=== PATIENT | female | born 1990 | race Caucasian/White ===

== ENCOUNTER 2018-06-15 12:40 | Outpatient (REF) | payer OTHER, SELFPAY | END 2018-06-15 13:00 | LOC: NCHCN 12:40 | PROVIDERS: PCP Internal Medicine; Visit Provider Nurse Practitioner Family | DX: R30.0 Dysuria (principal) | CPT/HCPCS: 87086 ==

== ENCOUNTER 2018-07-10 11:08 | Outpatient (REF) | payer OTHER, SELFPAY ==
[2018-07-10 14:31] LABS: Bilirubin Negative (Negative); Blood Small (Negative); Clarity Clear; Glucose Negative (Negative); Ketones Negative (Negative); Leukocyte Esterase Negative (Negative); Nitrite Negative (Negative); Urobilinogen 0.2 EU/dL (Up TO 0.2)
[2018-07-10 14:53] LABS: Bacteria Many HPF (Negative); Epithelial Cells Many HPF (Negative)
[2018-07-10 14:58] LABS: C & S Indicated? No/Sq. Contamination
== END 2018-07-10 11:28 ==
LOC: NCHCN 11:08
PROVIDERS: PCP Internal Medicine; Visit Provider Nurse Practitioner Family
DX: R30.0 Dysuria (principal)
CPT/HCPCS: 81003; 81015

== ENCOUNTER 2018-08-17 14:35 | Outpatient (REF) | payer OTHER, SELFPAY ==
[2018-08-17 15:24] LABS: C & S Indicated? C&S Done As Ordered
[2018-08-17 15:30] LABS: Bacteria Many HPF (Negative); Epithelial Cells Many HPF (Negative); WBC >50 HPF (0-5)
== END 2018-08-17 14:55 ==
LOC: LBN 14:35
PROVIDERS: PCP Internal Medicine; Visit Provider Nurse Practitioner Gerontology
DX: R30.0 Dysuria (principal)
CPT/HCPCS: 87077; 81015; 87086; 87186

== ENCOUNTER 2018-09-16 14:21 | Outpatient (REF) | payer OTHER, SELFPAY | END 2018-09-16 14:41 | LOC: LBN 14:21 | PROVIDERS: PCP Internal Medicine; Visit Provider Nurse Practitioner Gerontology | DX: N39.0 Urinary tract infection, site not specified (principal) | CPT/HCPCS: 87077; 87086; 87186 ==

== ENCOUNTER 2019-03-12 16:25 | Outpatient (CLI) | payer OTHER, SELFPAY ==
[2019-03-12 16:56] LABS: Abs Immature Grans 0.02 k/cumm (0.0-0.09); Absolute Basophil Count 0.09 k/cumm (0.0-0.2); Absolute Eosinophil Count 0.15 k/cumm (0.0-0.7); Absolute Lymphocyte Count 2.75 k/cumm (1.2-3.4); Absolute Monocyte Count 0.69 k/cumm (0.11-0.7); Absolute Neutrophil Count 6.49 k/cumm (1.2-6.7); Basophils % 0.9; Eosinophils % 1.5; HCT 39.2 % (36.0-46.0); HGB 12.9 g/dL (12.0-15.5); Immature Grans % 0.2; Mean Corp. HGB Concentration 32.9 g/dL (32.0-36.0); Mean Corpuscular Hemoglobin 31.1 pg (27.0-33.0); Mean Corpuscular Volume 94.5 fL (80-95); Mean Platelet Volume 10.4 fL (8.0-11.0); Monocytes % 6.8; Neutrophils % 63.6; Platelet Count 339 x1000/uL (130-400); RBC 4.15 m/cumm (4.00-5.20); RBC Distribution Width 11.9 % (11.7-14.6); White Blood Cell Count 10.19 k/cumm (4.4-10.8)
[2019-03-12 17:39] LABS: ALT 52 U/L (14-59); AST 99 U/L (15-37); Albumin 4.2 g/dL (3.4-5.0); Alkaline Phosphatase 64 U/L (46-116); Anion Gap 9.3 mmol/L (3-11); BUN 20 mg/dL (7-18); Bilirubin, Total 0.2 mg/dL (0.2-1.0); C-Reactive Protein 0.07 mg/dL (0.0-0.3); CO2 26.7 mmol/L (21.0-32.0); CREATININE 0.75 mg/dL (0.55-1.02); Calcium 8.8 mg/dL (8.5-10.1); Chloride 105 mmol/L (98-107); Glucose 92 mg/dL (74-106); Potassium 4.3 mmol/L (3.5-5.1); Sodium 141 mmol/L (136-145); Total Protein 7.2 g/dL (6.4-8.2)
[2019-03-12 18:33] LABS: ESR 8 mm/hr (0-20)
== END 2019-03-12 16:45 ==
PROVIDERS: PCP Internal Medicine; Visit Provider Nurse Practitioner Family
DX: K50.90 Crohn's disease, unspecified, without complications (principal)
CPT/HCPCS: 36415; 80053; 85652; 85025; 86140

== ENCOUNTER 2019-03-23 12:50 | Outpatient (REF) | payer OTHER, SELFPAY ==
[2019-03-23 21:21] LABS: Abs Immature Grans 0.01 k/cumm (0.0-0.09); Absolute Basophil Count 0.05 k/cumm (0.0-0.2); Absolute Eosinophil Count 0.07 k/cumm (0.0-0.7); Absolute Lymphocyte Count 1.48 k/cumm (1.2-3.4); Absolute Monocyte Count 0.44 k/cumm (0.11-0.7); Absolute Neutrophil Count 4.51 k/cumm (1.2-6.7); Basophils % 0.8; Eosinophils % 1.1; HGB 13.4 g/dL (12.0-15.5); Immature Grans % 0.2; Lymphocytes % 22.6; Mean Corp. HGB Concentration 32.7 g/dL (32.0-36.0); Mean Corpuscular Hemoglobin 31.2 pg (27.0-33.0); Mean Corpuscular Volume 95.3 fL (80-95); Mean Platelet Volume 11.2 fL (8.0-11.0); Monocytes % 6.7; Neutrophils % 68.6; Platelet Count 331 x1000/uL (130-400); RBC Distribution Width 11.9 % (11.7-14.6); White Blood Cell Count 6.56 k/cumm (4.4-10.8)
[2019-03-23 21:31] LABS: Iron 187 ug/dL (50-170); Total Iron Binding Capacity 296 ug/dL (250-450); Transferrin Sat 63 % (15-50)
== END 2019-03-23 13:10 ==
LOC: NCHCN 12:50
PROVIDERS: PCP Internal Medicine; Visit Provider Nurse Practitioner Family
DX: K62.5 Hemorrhage of anus and rectum (principal); K51.90 Ulcerative colitis, unspecified, without complications; R10.32 Left lower quadrant pain
CPT/HCPCS: 83540; 83550; 85025

== ENCOUNTER 2019-04-02 00:20 | Outpatient (CLI) | payer OTHER, SELFPAY ==
[2019-04-02 13:28] LABS: Iron 169 ug/dL (50-170); Total Iron Binding Capacity 270 ug/dL (250-450); Transferrin Sat 63 % (15-50)
== END 2019-04-02 00:40 ==
LOC: NCHCO 00:20 → LBO 11:57
PROVIDERS: PCP Internal Medicine; Visit Provider Internal Medicine
DX: R79.0 Abnormal level of blood mineral (principal)
CPT/HCPCS: 36415; 83540; 83550

== ENCOUNTER 2020-04-25 17:45 | Outpatient (REF) | payer OTHER, SELFPAY ==
--- NOTE | 2020-04-25 16:00 | PAPFT_PTH ---
PATIENT: Vinicio Poon LOC: [facility] U#:[id number] AGE/SX: 30/F ROOM: RE04/25/[address]: Divya Navarro : 1990 BED: DIS: 04/25/2020 SPEC #: [id number] RECD: 04/26/20 13:00 STATUS: JAS REFallon #: [id number] MIKE: 04/25/20 16:[address]: Divya Navarro DEPT: [facility] Cytology RECD BY: Yuki Buenrostro ENTERED: 04/26/20 13:01 SP TYPE: PAPFT OTHR DR: Elian Narvaez Tissues: 1 - CX/ENDOCX FOR PAP SMEARS Procedures: PAP THIN PREP/[facility] Screening HPV DNA PROBE Comments: [id number] (CHLAMYDIA/GC)
[2020-04-25 21:55] LABS: CREATININE 0.74 mg/dL (0.55-1.02)
[2020-04-27 05:00] LABS: Vitamin D 25 Total 35.2 ng/ml (30-100)
[2020-04-27 10:15] LABS: Hepatitis C Ab w Rflx HCV PCR Negative (Negative)
[2020-04-27 10:19] LABS: Syphilis Serology (RPR) Negative (Negative)
[2020-04-27 10:31] LABS: HIV-1/2 Ag & Ab Screen Negative (Negative)
[2020-04-28 07:12] LABS: Chlamydia Result Negative (Negative); GC Result Negative (Negative)
== END 2020-04-25 18:05 ==
LOC: NCHCN 17:45
PROVIDERS: PCP Internal Medicine; Visit Provider Nurse Practitioner Family
DX: Z00.00 Encounter for general adult medical examination without abnormal findings (principal); E55.9 Vitamin D deficiency, unspecified; J34.89 Other specified disorders of nose and nasal sinuses; G47.00 Insomnia, unspecified; K51.90 Ulcerative colitis, unspecified, without complications; H90.5 Unspecified sensorineural hearing loss; Z11.59 Encounter for screening for other viral diseases; Z11.3 Encounter for screening for infections with a predominantly sexual mode of transmission; Z11.4 Encounter for screening for human immunodeficiency virus [HIV]; Z12.4 Encounter for screening for malignant neoplasm of cervix; Z11.51 Encounter for screening for human papillomavirus (HPV); R87.610 Atypical squamous cells of undetermined significance on cytologic smear of cervix (ASC-US); R87.810 Cervical high risk human papillomavirus (HPV) DNA test positive; Z01.419 Encounter for gynecological examination (general) (routine) without abnormal findings
CPT/HCPCS: 82306; 86803; 87389; 87491; 87591; 88142; 82565; 86592; 87624

== ENCOUNTER 2021-05-28 13:31 | Outpatient (REF) | payer OTHER, SELFPAY ==
--- NOTE | 2021-05-28 11:50 | PAPFT_PTH ---
PATIENT: Vinicio Poon [facility] U#:[id number] AGE/SX: 31/F ROOM: RE05/28/[address]: Divya Navarro : 1990 BED: DIS: 05/28/2021 SPEC #: [id number] RECD: 05/28/21 18:00 STATUS: JAS REFallon #: [id number] MIKE: 05/28/21 11:[address]: Divya Navarro DEPT: [facility] Cytology RECD BY: Yuki Buenrostro ENTERED: 05/28/21 18:00 SP TYPE: PAPFT OTHR DR: Elian Narvaez Tissues: 1 - CX/ENDOCX FOR PAP SMEARS Procedures: PAP THIN PREP/[facility] Screening HPV DNA PROBE Comments: [id number] (CHLAMYDIA/GC)
[2021-05-28 21:26] LABS: Abs Immature Grans 0.01 10^3/uL (0.0-0.06); Absolute Basophil Count 0.12 10^3/uL (0.0-0.2); Absolute Eosinophil Count 0.08 10^3/uL (0.0-0.7); Absolute Lymphocyte Count 1.81 10^3/uL (1.2-3.4); Absolute Monocyte Count 0.51 10^3/uL (0.1-0.8); Absolute Neutrophil Count 5.16 10^3/uL (1.2-6.7); Basophils % 1.6; HCT 40.1 % (36.0-46.0); HGB 12.8 g/dL (11.2-15.7); Immature Grans % 0.1; Lymphocytes % 23.5; MCH 30.1 pg (27.0-33.0); MCHC 31.9 % (32.0-36.0); MCV 94.4 fL (80-95); MPV 11.2 fL (8.0-11.0); Monocytes % 6.6; Neutrophils % 67.2; Nucleated RBC 0 %; Platelet Count 351 10^3/uL (130-400); RBC 4.25 10^6/uL (3.93-5.22); RDW 11.9 % (11.7-14.6); RDW-SD 41.8 fL; WBC 7.69 10^3/uL (4.4-10.8)
[2021-05-28 21:49] LABS: Iron 182 ug/dL (50-170); Total Iron Binding Capacity 316 ug/dL (250-450); Transferrin Sat 58 % (15-50)
[2021-05-28 21:59] LABS: Vitamin D 25 Total 28.8 ng/mL (30-100)
[2021-05-28 22:02] LABS: Ferritin 35 ng/mL (8-252); TSH (W/Ref FT4) 1.32 uIU/mL (0.36-3.74)
[2021-05-29 13:25] LABS: Chlamydia Result Negative (Negative); GC Result Negative (Negative)
[2021-05-30 09:55] LABS: HIV-1/2 Ag & Ab Screen Negative (Negative)
[2021-05-30 10:03] LABS: Syphilis Serology (RPR) Negative (Negative)
== END 2021-05-28 13:32 | disposition home or self-care (01) ==
LOC: NCHCN 13:31
PROVIDERS: PCP Internal Medicine; Visit Provider Nurse Practitioner Family
DX: Z12.4 Encounter for screening for malignant neoplasm of cervix (principal); Z11.51 Encounter for screening for human papillomavirus (HPV); R87.612 Low grade squamous intraepithelial lesion on cytologic smear of cervix (LGSIL); R87.810 Cervical high risk human papillomavirus (HPV) DNA test positive; Z00.01 Encounter for general adult medical examination with abnormal findings; R53.83 Other fatigue; F41.9 Anxiety disorder, unspecified; E55.9 Vitamin D deficiency, unspecified; Z11.4 Encounter for screening for human immunodeficiency virus [HIV]
CPT/HCPCS: 82306; 87389; 87491; 87591; 88142; 82728; 83540; 83550; 84443; 85025; 86592; 87624

== ENCOUNTER 2022-07-16 23:50 | Outpatient (REF) | payer OTHER, SELFPAY ==
[2022-07-16 19:43] LABS: Abs Immature Grans 0.03 10^3/uL (0.0-0.06); Absolute Basophil Count 0.14 10^3/uL (0.0-0.2); Absolute Eosinophil Count 0.18 10^3/uL (0.0-0.7); Absolute Lymphocyte Count 3.34 10^3/uL (1.2-3.4); Absolute Monocyte Count 0.78 10^3/uL (0.1-0.8); Absolute Neutrophil Count 5.86 10^3/uL (1.2-6.7); Basophils % 1.4; Eosinophils % 1.7; HCT 37.4 % (36.0-46.0); HGB 12.3 g/dL (11.2-15.7); Immature Grans % 0.3; Lymphocytes % 32.3; MCH 30.1 pg (27.0-33.0); MCHC 32.9 % (32.0-36.0); MCV 91 fL (80-95); MPV 10.7 fL (8.0-11.0); Monocytes % 7.6; Neutrophils % 56.7; Platelet Count 330 10^3/uL (130-400); RBC 4.09 10^6/uL (3.93-5.22); RDW 12.2 % (11.7-14.6); WBC 10.33 10^3/uL (4.4-10.8)
[2022-07-16 20:11] LABS: ALT 19 U/L (14-59); AST 12 U/L (15-37); Albumin 3.9 g/dL (3.4-5.0); Alkaline Phosphatase 68 U/L (46-116); Anion Gap 6.6 mmol/L (3-11); BUN 18 mg/dL (7-18); Bilirubin, Total 0.3 mg/dL (0.2-1.0); CO2 27.4 mmol/L (21.0-32.0); CREATININE 0.8 mg/dL (0.55-1.02); Calcium 8.9 mg/dL (8.5-10.1); Chloride 105 mmol/L (98-107); Estimated GFR 100.33 (mL/min/1.73m2); Glucose 89 mg/dL (74-106); Potassium 4.3 mmol/L (3.5-5.1); Sodium 139 mmol/L (136-145)
== END 2022-07-16 23:51 | disposition home or self-care (01) ==
LOC: LBN 23:50
PROVIDERS: PCP Internal Medicine; Visit Provider Internal Medicine Gastroenterology
DX: K51.20 Ulcerative (chronic) proctitis without complications (principal)
CPT/HCPCS: 80053; 85025; 86140

== ENCOUNTER 2022-08-02 13:28 | Outpatient (REF) | payer OTHER, SELFPAY ==
--- NOTE | 2022-08-02 09:00 | PAPFT_PTH ---
PATIENT: Vinicio Poon LOC: [facility] U#:[id number] AGE/SX: 32/F ROOM: RE08/02/[address]: Divya Navarro : 1990 BED: DIS: 08/02/2022 SPEC #: [id number] RECD: 08/02/22 17:03 STATUS: JAS REQ #: [id number] MIKE: 08/02/22 09:[address]: Divya Navarro DEPT: [facility] Cytology RECD BY: Yuki Buenrostro ENTERED: 08/02/22 17:03 SP TYPE: PAPFT OTHR DR: Elian Narvaez Tissues: 1 - CX/ENDOCX FOR PAP SMEARS Procedures: PAP THIN PREP/[facility] Screening HPV DNA PROBE Comments: [id number] (HPV 16 & 18/45) (CHLAMYDIA/GC)
[2022-08-02 16:08] LABS: Vitamin D 25 Total 24.7 ng/mL (30-100)
[2022-08-04 14:29] LABS: Chlamydia Result Negative (Negative); GC Result Negative (Negative)
== END 2022-08-02 13:29 | disposition home or self-care (01) ==
LOC: NCHCN 13:28
PROVIDERS: PCP Internal Medicine; Visit Provider Nurse Practitioner Family
DX: E55.9 Vitamin D deficiency, unspecified (principal); Z00.00 Encounter for general adult medical examination without abnormal findings; Z12.4 Encounter for screening for malignant neoplasm of cervix; Z11.51 Encounter for screening for human papillomavirus (HPV); K51.90 Ulcerative colitis, unspecified, without complications; I73.00 Raynaud's syndrome without gangrene; R87.610 Atypical squamous cells of undetermined significance on cytologic smear of cervix (ASC-US); R87.810 Cervical high risk human papillomavirus (HPV) DNA test positive
CPT/HCPCS: 82306; 87491; 87591; 88142; 87624

== ENCOUNTER 2023-08-24 17:07 | Outpatient (REF) | payer OTHER, SELFPAY ==
[2023-08-24 18:01] LABS: Abs Immature Grans 0.03 10^3/uL (0.0-0.06); Absolute Basophil Count 0.13 10^3/uL (0.0-0.2); Absolute Eosinophil Count 0.14 10^3/uL (0.0-0.7); Absolute Lymphocyte Count 3.17 10^3/uL (1.2-3.4); Absolute Monocyte Count 0.91 10^3/uL (0.1-0.8); Absolute Neutrophil Count 5.01 10^3/uL (1.2-6.7); Basophils % 1.4 %; Eosinophils % 1.5 %; HCT 39.5 % (36.0-46.0); HGB 12.9 g/dL (11.2-15.7); Immature Grans % 0.3 %; Lymphocytes % 33.8 %; MCH 30.4 pg (27.0-33.0); MCHC 32.7 % (32.0-36.0); MCV 93 fL (80-95); Monocytes % 9.7 %; Neutrophils % 53.3 %; Platelet Count 378 10^3/uL (130-400); RBC 4.25 10^6/uL (3.93-5.22); RDW 11.9 % (11.7-14.6); RDW-SD 41.1 fL; WBC 9.39 10^3/uL (4.4-10.8)
[2023-08-24 18:12] LABS: ALT 23 U/L (14-59); AST 31 U/L (15-37); Albumin 4.1 g/dL (3.4-5.0); Alkaline Phosphatase 68 U/L (46-116); Anion Gap 7.4 mmol/L (3-11); BUN 13 mg/dL (7-18); Bilirubin, Total 0.3 mg/dL (0.2-1.0); CO2 27.6 mmol/L (21.0-32.0); CREATININE 0.9 mg/dL (0.55-1.02); Calcium 8.9 mg/dL (8.5-10.1); Chloride 105 mmol/L (98-107); Estimated GFR 86.57 (mL/min/1.73m2); Glucose 98 mg/dL (74-106); Potassium 4.5 mmol/L (3.5-5.1); Sodium 140 mmol/L (136-145); Total Protein 7.1 g/dL (6.4-8.2)
[2023-08-24 18:17] LABS: C-Reactive Protein < 0.50 mg/dL (<or=0.5)
[2023-08-24 18:34] LABS: Vitamin D 25 Total 28.4 ng/mL (30-100)
== END 2023-08-24 17:08 | disposition home or self-care (01) ==
LOC: NCHCN 17:07
PROVIDERS: Internal Medicine Gastroenterology; PCP Internal Medicine; Visit Provider Nurse Practitioner Family
DX: E55.9 Vitamin D deficiency, unspecified (principal)
CPT/HCPCS: 80053; 82306; 85025; 86140

== ENCOUNTER 2024-08-06 13:31 | Outpatient (REF) | payer OTHER, SELFPAY ==
--- NOTE | 2024-08-06 12:15 | PAPFT_PTH ---
PATIENT: Vinicio Poon LOC: [facility] U#:[id number] AGE/SX: 34/F ROOM: RE08/06/[address]: Divya Navarro : 1990 BED: DIS: 08/06/2024 SPEC #: [id number] RECD: 08/06/24 17:11 STATUS: JAS REQ #: [id number] MIKE: 08/06/24 12:[address]: Divya Navarro DEPT: [facility] Cytology RECD BY: Yuki Buenrostro ENTERED: 08/06/24 17:11 SP TYPE: PAPFT ROBERTHR DR: Elian Narvaez Tissues: 1 - CX/ENDOCX FOR PAP SMEARS Procedures: PAP THIN PREP/[facility] Screening HPV DNA PROBE Comments: [id number] (HPV 16 & 18/45)
[2024-08-06 14:18] LABS: Abs Immature Grans 0.03 10^3/uL (0.0-0.06); Absolute Basophil Count 0.12 10^3/uL (0.0-0.2); Absolute Eosinophil Count 0.05 10^3/uL (0.0-0.7); Absolute Lymphocyte Count 1.76 10^3/uL (1.2-3.4); Absolute Monocyte Count 0.67 10^3/uL (0.1-0.8); Absolute Neutrophil Count 5.37 10^3/uL (1.2-6.7); Basophils % 1.5 %; Eosinophils % 0.6 %; HCT 43.4 % (36.0-46.0); HGB 14.4 g/dL (11.2-15.7); Immature Grans % 0.4 %; MCH 31.2 pg (27.0-33.0); MCHC 33.2 % (32.0-36.0); MCV 94 fL (80-95); Monocytes % 8.4 %; Neutrophils % 67.1 %; Platelet Count 359 10^3/uL (130-400); RBC 4.61 10^6/uL (3.93-5.22); RDW 11.6 % (11.7-14.6); RDW-SD 40.1 fL
[2024-08-06 14:22] LABS: ESR 1 mm/hr (0-20)
[2024-08-06 14:29] LABS: Iron 125 ug/dL (50-170); Total Iron Binding Capacity 302 ug/dL (250-450); Transferrin Sat 41 % (15-50)
[2024-08-06 14:57] LABS: ALT 23 U/L (14-59); AST 15 U/L (15-37); Albumin 4.4 g/dL (3.4-5.0); Alkaline Phosphatase 62 U/L (46-116); Anion Gap 7.5 mmol/L (3-11); BUN 10 mg/dL (7-18); Bilirubin, Total 0.5 mg/dL (0.2-1.0); CO2 28.5 mmol/L (21.0-32.0); CREATININE 0.8 mg/dL (0.55-1.02); Calcium 9.5 mg/dL (8.5-10.1); Chloride 107 mmol/L (98-107); Estimated GFR 99.09 (mL/min/1.73m2); Ferritin 62 ng/mL (8-252); Glucose 82 mg/dL (74-106); Sodium 143 mmol/L (136-145); TSH (W/Ref FT4) 1.42 uIU/mL (0.36-3.74); Total Protein 7.6 g/dL (6.4-8.2); Vitamin D 25 Total 21 ng/mL (30-100)
[2024-08-06 15:05] LABS: C-Reactive Protein < 0.50 mg/dL (<or=0.5)
[2024-08-09 14:55] LABS: Anaplasma phagocytophilum Negative (Negative); B. miyamotoi PCR Negative (Negative); Babesia divergens/MO-1 Negative (Negative); Babesia duncani Negative (Negative); Babesia microti Negative (Negative); Ehrlichia chaffeensis Negative (Negative); Ehrlichia ewingii/canis Negative (Negative); Ehrlichia muris eauclairensis Negative (Negative)
[2024-08-09 15:40] LABS: ANA Interpretation Negative (Negative)
== END 2024-08-06 13:32 | disposition home or self-care (01) ==
LOC: NCHCN 13:31
PROVIDERS: PCP Internal Medicine; Visit Provider Nurse Practitioner Family
DX: Z12.4 Encounter for screening for malignant neoplasm of cervix (principal); E55.9 Vitamin D deficiency, unspecified; Z00.00 Encounter for general adult medical examination without abnormal findings
CPT/HCPCS: 80053; 82306; 85652; 87798; 88142; 82728; 83540; 83550; 84443; 85025; 86038; 86140; 87624

== ENCOUNTER 2025-03-30 09:45 | Outpatient (CLI) | payer OTHER, SELFPAY ==
[2025-03-30 16:58] LABS: Abs Immature Grans 0.02 10^3/uL (0.0-0.06); HCT 39.8 % (36.0-46.0); HGB 13.2 g/dL (11.2-15.7); Immature Grans % 0.2 %; MCH 30.3 pg (27.0-33.0); MCHC 33.2 % (32.0-36.0); MCV 92 fL (80-95); MPV 10.1 fL (8.0-11.0); Platelet Count 359 10^3/uL (130-400); RBC 4.35 10^6/uL (3.93-5.22); RDW 11.3 % (11.7-14.6); RDW-SD 38.5 fL; WBC 9.29 10^3/uL (4.4-10.8)
[2025-03-30 17:01] LABS: ESR < 1 mm/hr (0-20)
[2025-03-30 17:40] LABS: ALT 14 U/L (10-49); AST 15 U/L (<34); Albumin 4.7 g/dL (3.2-5.0); Alkaline Phosphatase 74 U/L (46-116); Anion Gap 10.6 mmol/L (3-11); BUN 12 mg/dL (9-23); Bilirubin, Total 0.4 mg/dL (0.2-1.2); C-Reactive Protein < 0.50 mg/dL (<=0.50); CO2 25.4 mmol/L (20.0-31.0); Calcium 9.2 mg/dL (8.3-10.6); Chloride 106 mmol/L (98-107); Glucose 86 mg/dL (74-106); Potassium 3.9 mmol/L (3.5-5.1); Sodium 142 mmol/L (136-145); Total Protein 7.7 g/dL (5.7-8.2)
== END 2025-03-30 09:46 | disposition home or self-care (01) ==
LOC: LBO 05-12 09:45
PROVIDERS: PCP Internal Medicine; Visit Provider Internal Medicine Gastroenterology
DX: K51.20 Ulcerative (chronic) proctitis without complications (principal)
CPT/HCPCS: 36415; 80053; 85652; 85025; 86140